=== PATIENT | female | born 1960 | race African-American/Black ===

== ENCOUNTER 2018-05-14 05:06 | Emergency (ER) | payer MEDICAID ==
[~2018-05-14] VITALS: Ht 167.6 cm; Wt 79.2 kg
[2018-05-14 06:05] VITALS: BP 135/51
[2018-05-14] MEDS ORDERED: ACETAMINOPHEN 325MG TABLET PO ONE (07:00)
== END 2018-05-14 07:50 | disposition home or self-care (01) ==
LOC: ER 05:06
DX: R51 Headache (principal); Z98.890 Other specified postprocedural states; Z88.8 Allergy status to other drugs, medicaments and biological substances
CPT/HCPCS: 99282

== ENCOUNTER 2018-11-08 18:30 | Emergency (ER) | payer MEDICAID ==
[~2018-11-08] VITALS: Ht 170.2 cm; Wt 85.0 kg
[2018-11-08 19:04] VITALS: BP 162/68
== END 2018-11-08 21:00 | disposition left against medical advice (07) ==
LOC: ER 18:30
DX: M25.531 Pain in right wrist (principal); Z53.21 Procedure and treatment not carried out due to patient leaving prior to being seen by health care provider

== ENCOUNTER 2018-11-20 11:33 | Emergency (ER) | payer MEDICAID ==
[~2018-11-20] VITALS: Ht 170.2 cm; Wt 75.0 kg
[2018-11-20] MEDS ORDERED: ACETAMINOPHEN 325MG TABLET PO ONE (12:30)
[2018-11-20 14:00] VITALS: BP 127/70
== END 2018-11-20 16:09 | disposition home or self-care (01) ==
LOC: ER 11:33
DX: S52.121A Displaced fracture of head of right radius, initial encounter for closed fracture (principal); Z88.6 Allergy status to analgesic agent; W50.0XXA Accidental hit or strike by another person, initial encounter; Y93.89 Activity, other specified; Y92.89 Other specified places as the place of occurrence of the external cause; Y99.8 Other external cause status
CPT/HCPCS: 29125; 73090; 73110; 99283; A4565

== ENCOUNTER 2019-03-09 19:09 | Emergency (ER) | payer MEDICAID ==
[~2019-03-09] VITALS: Ht 170.2 cm; Wt 77.0 kg
[2019-03-10 00:30] VITALS: BP 125/67
== END 2019-03-10 02:02 | disposition left against medical advice (07) ==
LOC: ER 19:09
DX: T23.071A Burn of unspecified degree of right wrist, initial encounter (principal); T31.0 Burns involving less than 10% of body surface; X10.0XXA Contact with hot drinks, initial encounter; Y93.89 Activity, other specified; Y92.89 Other specified places as the place of occurrence of the external cause
CPT/HCPCS: 99281

== ENCOUNTER 2019-03-10 12:57 | Emergency (ER) | payer MEDICAID ==
[~2019-03-10] VITALS: Ht 170.2 cm; Wt 74.0 kg
[2019-03-10 13:24] VITALS: BP 126/72
== END 2019-03-10 19:18 | disposition left against medical advice (07) ==
LOC: ER 12:57
DX: T23.001A Burn of unspecified degree of right hand, unspecified site, initial encounter (principal); T31.0 Burns involving less than 10% of body surface; X10.0XXA Contact with hot drinks, initial encounter; Y93.89 Activity, other specified; Y92.89 Other specified places as the place of occurrence of the external cause
CPT/HCPCS: 99281

== ENCOUNTER 2019-03-23 11:03 | Emergency (ER) | payer MEDICAID ==
[~2019-03-23] VITALS: Ht 170.2 cm; Wt 73.0 kg
[2019-03-23] MEDS ORDERED: IBUPROFEN 600MG TABLET PO ONE (11:30)
[2019-03-23 11:31] VITALS: BP 132/67
[2019-03-23] MEDS ORDERED: ACETAMINOPHEN 325MG TABLET PO ONE (11:45)
== END 2019-03-23 13:25 | disposition home or self-care (01) ==
LOC: ER 11:08
DX: M79.631 Pain in right forearm (principal); Z88.6 Allergy status to analgesic agent
CPT/HCPCS: 73090; 93971; 99284; A4565

== ENCOUNTER 2019-09-26 16:07 | Emergency (ER) | payer MEDICAID ==
[~2019-09-26] VITALS: Ht 162.6 cm; Wt 73.0 kg
[2019-09-26 16:43] VITALS: BP 131/80
== END 2019-09-26 20:15 | disposition left against medical advice (07) ==
LOC: ER 16:07
DX: Z53.21 Procedure and treatment not carried out due to patient leaving prior to being seen by health care provider (principal)

== ENCOUNTER 2019-09-26 22:40 | Emergency (ER) | payer MEDICAID ==
[~2019-09-26] VITALS: Ht 162.6 cm; Wt 73.0 kg
[2019-09-27] MEDS ORDERED: BACITRACIN ZINC OINT UDPKT TOP ONE (02:00)
[2019-09-27] MEDS ORDERED: LIDOCAINE HCL/PF 1% 10 MG/ML 5ML VIAL IJ ONE (02:00)
[2019-09-27] MEDS ORDERED: BACITRACIN 15GM TUBE TOP SCH (02:15)
[2019-09-27] MEDS ORDERED: ACETAMINOPHEN 325MG TABLET PO ONE (02:45)
[2019-09-27 03:09] VITALS: BP 143/83
== END 2019-09-27 03:16 | disposition home or self-care (01) ==
LOC: ER 22:40
DX: L02.412 Cutaneous abscess of left axilla (principal); Z88.6 Allergy status to analgesic agent
CPT/HCPCS: 10060; 99283; J3490; Z7610

== ENCOUNTER 2023-01-17 09:38 | Inpatient (IN) | payer MEDICAID ==
[~2023-01-17] VITALS: Ht 170.2 cm; Wt 79.4 kg
[2023-01-17] MEDS ORDERED: ALBUTEROL (0.083%) 2.5MG/3ML NEB HHN STA (12:14)
[2023-01-17] MEDS ORDERED: IPRATROPIUM BROMIDE (0.02%) 0.5MG/2.5ML NEB HHN STA ×2 (12:14→13:18)
[2023-01-17] MEDS ORDERED: METHYLPREDNISOLONE SOD SUCC 125 MG/2 ML VIAL IV STA (12:14)
[2023-01-17] MEDS ORDERED: SODIUM CHLORIDE 0.9% 1,000 ML IV ONE (12:15)
[2023-01-17] MEDS ORDERED: DIPHENHYDRAMINE 50MG/ML VIAL IV ONE (12:15)
[2023-01-17] MEDS: ALBUTEROL (0.083%) 2.5MG/3ML NEB HHN SCH ×2 (13:30→14:00)
[2023-01-17 13:46] LABS: BASOPHILS % 0.5 % (0.0-2.0); EOSINOPHILS % 0.7 % (0.0-5.0); HEMATOCRIT. 37.9 % (36.0-48.0); HEMOGLOBIN. 12.8 g/dL (12.0-16.0); LYMPHOCYTES % 30.1 % (20.0-50.0); MEAN CORPUSCULAR HEMOGLOBIN 30.2 pg (28.0-32.0); MEAN CORPUSCULAR VOLUME 89.9 fL (81.0-99.0); MEAN PLATELET VOLUME 7.7 fl (7.4-10.4); MONOCYTES % 6.2 % (2.0-8.0); NEUTROPHILS % 62.5 % (40.0-76.0); PLATELET 404 x1000/uL (130-400); RED BLOOD CELL COUNT 4.22 mill/uL (4.2-5.4); RED CELL DISTRIBUTION WIDTH 13.5 % (11.6-14.6)
[2023-01-17 13:56] LABS: CHLORIDE 104 mEq/L (98-107)
[2023-01-17] MEDS ORDERED: METHYLPREDNISOLONE SOD SUCC 125 MG/2 ML VIAL IV NR (14:31)
[2023-01-17] MEDS ORDERED: DIPHENHYDRAMINE 50MG/ML VIAL IV NR (14:32)
[2023-01-17] MEDS ORDERED: IPRATROPIUM BROMIDE (0.02%) 0.5MG/2.5ML NEB HHN ONE (18:00)
[2023-01-17] MEDS ORDERED: ALBUTEROL (0.5%) 2.5MG/0.5ML NEB HHN ONE (18:00)
[2023-01-18 00:06] VITALS: BP 125/72
[2023-01-18 08:00] VITALS: BP 126/54
[2023-01-18] MEDS ORDERED: ONDANSETRON HCL 4MG/2ML INJ IV PRN (11:30)
[2023-01-18 12:00] VITALS: BP 111/45
[2023-01-18] MEDS ORDERED: IPRATROPIUM/ALBUTEROL 0.5-3(2.5)MG/3ML NEB HHN SCH (12:00)
[2023-01-18] MEDS: IPRATROPIUM BROMIDE (0.02%) 0.5MG/2.5ML NEB HHN SCH ×3 (12:09→22:09)
[2023-01-18] MEDS: ALBUTEROL (0.083%) 2.5MG/3ML NEB HHN SCH ×3 (12:09→22:08)
[2023-01-18] MEDS: AMPICILLIN SOD/SULBACTAM NA 3 G in SODIUM CHLORIDE 0.9% 100 ML IV SCH ×2 (15:03→20:49)
[2023-01-18] MEDS: METHYLPREDNISOLONE SOD SUCC 40 MG/ML VIAL IV SCH ×2 (15:03→22:36)
[2023-01-18 16:00] VITALS: BP 113/64
[2023-01-18 20:00] VITALS: BP 99/60
[2023-01-18] MEDS: FAMOTIDINE 20MG TABLET PO SCH (20:49)
[2023-01-18] MEDS: ACETAMINOPHEN 325MG TABLET PO PRN (21:47)
[2023-01-19] MEDS ORDERED: IOHEXOL-300 100 ML BOTTLE ONE (00:57)
[2023-01-19 01:15] LABS: *AMPHETAMINES SCREEN URINE NEGATIVE (NEGATIVE); *BARBITURATES SCREEN URINE NEGATIVE (NEGATIVE); *BENZODIAZEPINES SCREEN URINE NEGATIVE (NEGATIVE); *COCAINE SCREEN URINE NEGATIVE (NEGATIVE); CANNABINOID URINE SCREEN NEGATIVE (NEGATIVE); METHADONE URINE SCREEN NEGATIVE (NEGATIVE); OPIATES URINE SCREEN NEGATIVE (NEGATIVE); PHENCYCLIDINE URINE SCREEN NEGATIVE (NEGATIVE)
[2023-01-19] MEDS: IPRATROPIUM BROMIDE (0.02%) 0.5MG/2.5ML NEB HHN SCH ×5 (01:50→22:31)
[2023-01-19] MEDS: AMPICILLIN SOD/SULBACTAM NA 3 G in SODIUM CHLORIDE 0.9% 100 ML IV SCH ×4 (03:45→20:41)
[2023-01-19] MEDS: ALBUTEROL (0.083%) 2.5MG/3ML NEB HHN SCH ×4 (05:22→22:31)
[2023-01-19] MEDS: METHYLPREDNISOLONE SOD SUCC 40 MG/ML VIAL IV SCH ×3 (06:09→21:46)
[2023-01-19 08:00] VITALS: BP 136/72
[2023-01-19] MEDS: ACETAMINOPHEN 325MG TABLET PO PRN ×2 (10:22→17:14)
[2023-01-19 12:00] VITALS: BP 112/53
[2023-01-19] MEDS ORDERED: P20 MT (12:21)
[2023-01-19] MEDS ORDERED: AMOX1TAB16 MT (12:21)
[2023-01-19 16:00] VITALS: BP 135/73
[2023-01-19 20:00] VITALS: BP 103/50
[2023-01-19] MEDS: FAMOTIDINE 20MG TABLET PO SCH (20:41)
[2023-01-20] VITALS: BP 110/53
[2023-01-20] MEDS: AMPICILLIN SOD/SULBACTAM NA 3 G in SODIUM CHLORIDE 0.9% 100 ML IV SCH ×2 (03:02→08:41)
[2023-01-20 04:00] VITALS: BP 113/55
[2023-01-20] MEDS: METHYLPREDNISOLONE SOD SUCC 40 MG/ML VIAL IV SCH (05:34)
[2023-01-20] MEDS: IPRATROPIUM BROMIDE (0.02%) 0.5MG/2.5ML NEB HHN SCH ×4 (07:42→16:20)
[2023-01-20] MEDS: ALBUTEROL (0.083%) 2.5MG/3ML NEB HHN SCH ×4 (07:42→16:20)
[2023-01-20 08:00] VITALS: BP 137/68
[2023-01-20] MEDS: ACETAMINOPHEN 325MG TABLET PO PRN (08:41)
[2023-01-20 12:00] VITALS: BP 121/54
[2023-01-20 15:27] VITALS: BP 121/54
[2023-01-20 16:00] VITALS: BP 130/65
[2023-01-21] MEDS ORDERED: PREDNISONE 20MG TABLET PO SCH (09:00)
== END 2023-01-20 17:30 | disposition home or self-care (01) | DRG 113 ==
LOC: ER 09:38 → 6EST 17:31 → EDBEDREQ 17:39 → EDBEDREQSVC 17:39 → EDBEDREQTM 17:39
PROVIDERS: ADMIT Internal Medicine; ATTEND Internal Medicine
DX: H66.91 Otitis media, unspecified, right ear (principal); R49.0 Dysphonia; Z20.822 Contact with and (suspected) exposure to COVID-19; Z88.6 Allergy status to analgesic agent
CPT/HCPCS: 36415; 70491; 71045; 80053; 80305; 83880; 84484; 85025; 87426; 94640; 99285; C9803; J0295; J1200; J2920; J2930; J7030; J7050; Q9967

== ENCOUNTER 2023-02-10 16:37 | Emergency (ER) | payer MEDICAID ==
[~2023-02-10] VITALS: Ht 167.6 cm; Wt 72.6 kg
[~2023-02-10 16:37] MED LIST: AMOX1TAB16 MT; P20 MT
[2023-02-10 16:48] VITALS: BP 130/78
[2023-02-11] MEDS ORDERED: DOXY100C5 MT (06:25)
[2023-02-11] MEDS ORDERED: ACET-2708 MT (06:25)
== END 2023-02-10 20:50 | disposition left against medical advice (07) ==
LOC: ER 16:43
DX: Z53.21 Procedure and treatment not carried out due to patient leaving prior to being seen by health care provider (principal)
CPT/HCPCS: 99281

== ENCOUNTER 2023-02-11 00:48 | Emergency (ER) | payer MEDICAID ==
[~2023-02-11] VITALS: Ht 167.6 cm; Wt 73.0 kg
[2023-02-11] MEDS ORDERED: ACETAMINOPHEN 325MG TABLET PO ONE (05:00)
[2023-02-11 05:47] LABS: BASOPHILS % 0.4 % (0.0-2.0); EOSINOPHILS % 2.3 % (0.0-5.0); HEMOGLOBIN. 12.2 g/dL (12.0-16.0); MEAN CORPUSCULAR HEMOGLOBIN 30.2 pg (28.0-32.0); MEAN CORPUSCULAR VOLUME 89.3 fL (81.0-99.0); MEAN PLATELET VOLUME 7.5 fl (7.4-10.4); MONOCYTES % 8.6 % (2.0-8.0); NEUTROPHILS % 67.7 % (40.0-76.0); PLATELET 420 x1000/uL (130-400); RED BLOOD CELL COUNT 4.03 mill/uL (4.2-5.4); RED CELL DISTRIBUTION WIDTH 13.6 % (11.6-14.6)
[2023-02-11 05:51] LABS: CHLORIDE 102 mEq/L (98-107)
[2023-02-11] MEDS ORDERED: ACET-2708 MT (06:25)
[2023-02-11] MEDS ORDERED: DOXY100C5 MT (06:25)
[2023-02-11] MEDS ORDERED: DOXYCYCLINE HYCLATE 100MG CAPSULE PO ONE (06:45)
[2023-02-11 06:59] VITALS: BP 128/74
== END 2023-02-11 07:15 | disposition home or self-care (01) ==
LOC: ER 00:48
DX: H74.8X3 Other specified disorders of middle ear and mastoid, bilateral (principal)
CPT/HCPCS: 36415; 80053; 85025; 99284